=== PATIENT | male | born 2000 | race Caucasian/White ===

== ENCOUNTER 2020-06-23 17:44 | Emergency (ER) | payer OTHER ==
[2020-06-23] MEDS ORDERED: DIPHTH,PERTUSS(ACELL),TET 0.5 ML DISP.SYRIN IM ONE (17:54)
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
[2020-06-23 18:03] VITALS: BP 144/76; PULSE 65; TEMP 98; BMI 32.5
== END 2020-06-23 18:20 | disposition left against medical advice (07) ==
LOC: JER 17:44
PROC: 3E0234Z Introduction of Serum, Toxoid and Vaccine into Muscle, Percutaneous Approach (ICD-10-PCS; principal; 2020-06-23)
DX: M54.5 Low back pain (principal)
CPT/HCPCS: 99285-25

== ENCOUNTER 2021-09-10 08:12 | Emergency (ER) | payer OTHER ==
[2021-09-10 08:23] VITALS: BP 128/76; PULSE 105; TEMP 97.9; BMI 32.5
== END 2021-09-10 11:00 | disposition home or self-care (01) ==
LOC: JER 08:12 → JERFT 08:12
DX: J34.89 Other specified disorders of nose and nasal sinuses (principal); M25.521 Pain in right elbow; V87.7XXA Person injured in collision between other specified motor vehicles (traffic), initial encounter; Y92.9 Unspecified place or not applicable
CPT/HCPCS: 70486-TC; 73070-TC-RT-FY; 74177-TC; 99284-25; Q9967